=== PATIENT | female | born 1940 | race Caucasian/White ===

== ENCOUNTER 2016-12-03 19:10 | Observation (INO) ==
[2016-12-03 19:41] LABS: Basophils % 0.2 %; Eosinophils # 0.1 K/mcL (0.0-0.6); Eosinophils % 0.8 %; Hematocrit 40.9 % (35.3-44.9); Hemoglobin 14.3 g/dL (11.5-15.4); Immature Granulocytes % 0.5 % (0-4); Immature Platelets 4.9 % (1.1-6.1); Lymphocytes # 1.5 K/mcL (0.6-4.6); Mean Corpuscular Volume 88.7 fL (83.0-100.0); Mean Platelet Volume 10.5 fL (9.4-12.4); Monocytes # 1.2 K/mcL (0.0-1.3); Monocytes % 12.8 %; Neutrophils # 6.5 K/mcL (1.6-8.9); Platelet Count 238 K/mcL (140-400); Red Blood Count 4.61 M/mcL (3.82-4.97); Red Cell Distribution Width 12.3 % (11.5-14.5); Segmented Neutrophils % 69.7 %
[2016-12-03 19:45] LABS: Prothrombin Time 11.2 Seconds (9.4-12.1)
[2016-12-03 19:47] LABS: Activated Partial Thrombo Time 21.1 Seconds (26.0-36.0)
[2016-12-03 19:52] LABS: Calcium 10.4 mg/dL (8.6-10.8)
--- NOTE | 2016-12-03 21:36 | Emergency Department Note ---
Disposition Clinical Impression: Falls frequently, Clinical decompensation, Hyponatremia, Hypokalemia Disposition: Admitted As Inpatient Condition: Good Time of Disposition: 00:55 General Adult HPI - General Chief complaint: ED Fall Stated complaint: dizzy, fell Time Seen by Provider: 12/03/16 19:24 Source: patient, EMS Limitations: altered mental status Nursing Notes Reviewed: Yes Vital Signs Reviewed: Yes - History of Present Illness HPI Narrative: Demented female patient fell twice today. was able to help her down to the ground during the second time however the first time she did check her head. Family states she is acting appropriately. Patient is very confused. Pupils are equal and reactive. She is unable to tell stories. She does say she has pain in her left hip whenever it is palpated. Patient's denies any syncope for the patient but states that she does feel very weak and goes down to the ground. Pain Scale: 0 - Related Data Home Medications Medication Instructions Recorded Confirmed Amlodipine Besylate [Amlodipine 10 mg PO DAILY 12/03/16 12/03/16 Besylate] Ascorbate Calcium [Vitamin C] 500 mg PO DAILY 12/03/16 12/03/16 Calcium Citrate/Vitamin D3 1 tab PO DAILY 12/03/16 12/03/16 [Calcium Citrate - Vit D Caplet] Cholecalciferol (Vitamin D3) 2,000 unit PO DAILY 12/03/16 12/03/16 [Vitamin D] Donepezil [Aricept] 10 mg PO DAILY 12/03/16 12/03/16 L. Acidophilus/Pectin, Fleming 1 cap PO DAILY 12/03/16 12/03/16 [Acidophilus Probiotic Capsule] Lisinopril/Hydrochlorothiazide 1 tab PO DAILY 12/03/16 12/03/16 [Zestoretic 20-25 mg Tablet] Ranitidine HCl [Heartburn Relief] 150 mg PO BID 12/03/16 12/03/16 Vitamin E (Dl,Tocopheryl Acet) 400 unit PO DAILY 12/03/16 12/03/16 [Vitamin E] Allergies Allergy/AdvReac Type Severity Reaction Status Date / Time No Known Allergies Allergy Unverified 05/23/15 09:25 Limitations: ROS unobtainable due to patients medical condition Past Medical History - Past Medical History Medical history: Reports: cancer, dementia, GERD, hyperlipidemia, hypertension Psychiatric history: Reports: anxiety, depression - Social History Smoking Status: Never smoker Smokeless Tobacco Status: No Alcohol use: Reports: none Drug use: Reports: none Physical Exam - General Limitations: altered mental status General appearance: in no apparent distress - Head Head exam: atraumatic, normocephalic, normal inspection - Eye Eye exam: Present: normal appearance, PERRL, EOMI. Absent: scleral icterus - ENT ENT exam: normal exam, normal oropharynx, mucous membranes moist - Neck Neck exam: Present: normal inspection, full ROM, trachea midline - Chest Chest inspection: Present: normal inspection, symmetric chest wall rise - Respiratory Respiratory exam: Present: normal lung sounds bilaterally. Absent: respiratory distress - Cardiovascular Cardiovascular exam: Present: regular rate, normal rhythm, normal heart sounds - Abdominal Exam Abdominal exam: Present: soft, Non-Tender, normal bowel sounds. Absent: tenderness, distention, guarding, rebound, rigidity, organomegaly - Extremities Exam Extremities exam: Present: normal inspection, full ROM, tenderness (Palpation of left hip area. Also has pain to palpation of lower thoracic upper lumbar area.), normal capillary refill, other (Strong pulses in all 4 extremities.). Absent: pedal edema - Back Exam Back exam: Present: normal inspection, other (No step-offs noted.). Absent: CVA tenderness (R), CVA tenderness (L) - Neurological Exam Neurological exam: Present: alert. Absent: oriented X3 (Demented. Family states this is her normal mental state.) - Psychiatric Psychiatric exam: Present: agitated - Skin Skin exam: Present: warm, dry, intact, normal color. Absent: rash, cyanosis, diaphoresis, erythema Course Course Narrative: Female patient presenting to the emergency department after sustaining 2 falls today. Family states she just went down to her knees because she got too weak. Patient does have a history of dementia. She stayed 2 weeks in the long term for respite care and the family states she has been ever since she left. They state that she did strike her head whenever she fell in the bathroom. She was brought in by EMS on a backboard. She is demented. She gets very aggravated whenever you talk to her or try to take off her socks. I do not appreciate any signs of trauma to her body. There is no gross deformity of her extremities. She has full movement of all 4 extremities and good pulses. She does complain of left hip pain. If you ask her where it hurts she says "here" no matter where you are touching. There no signs of ecchymosis. She does grimace on palpation of her lower thoracic upper lumbar area. We will see him patient's head and C-spine as well as her thoracic and lumbar spine. We will also get a basic lab workup on patient and check her urine for infection. Patient's family states that she is acting appropriately for herself. Her pupils are equal and reactive and she does not appear to be in any distress. - Reevaluation(s) Reevaluation #1: Patient's imaging was normal. She has been mentating to her normal state while she is here. Patient's decompensating in her condition. Family is unable to care for her at home at this time. She does have recent frequent falls. She is unable to care for herself. She does have hypokalemia. As well as hyponatremia. We have ordered mag levels. We will admit the patient. - Consultations Consultation #1: Dr Jaramillo accepted Pt in stable condition. Time: 22:47 Vital Signs Temperature 97.8 F 12/03/16 19:13 Pulse Rate 120 12/03/16 19:13 Respiratory Rate 16 12/03/16 19:13 Blood Pressure 96/47 12/03/16 19:13 O2 Sat by Pulse Oximetry 94 12/03/16 19:13 Temperature 98.6 F 12/04/16 00:02 Pulse Rate 84 12/04/16 00:02 Respiratory Rate 15 12/04/16 00:02 Blood Pressure 116/70 12/04/16 00:02 O2 Sat by Pulse Oximetry 97 12/04/16 00:02 Oxygen Delivery Oxygen Delivery Room Air Medical Decision Making - Medical Records Medical records reviewed: Yes I reviewed the patient's medical records. - Lab Data Lab results reviewed: Yes I reviewed the patient's lab results. Result diagrams: 12/03/16 19:30 12/03/16 19:30 Lab Results 12/03/16 12/03/16 12/03/16 Range/Units 19:16 19:30 19:30 WBC 9.3 (4.3-11.1) K/mcL RBC 4.61 (3.82-4.97) M/mcL Hgb 14.3 (11.5-15.4) g/dL Hct 40.9 (35.3-44.9) % MCV 88.7 (83.0-100.0) fL MCH 31.0 (28.0-33.3) pg MCHC 35.0 (31.6-35.5) g/dL RDW 12.3 (11.5-14.5) % Plt Count 238 (140-400) K/mcL MPV 10.5 (9.4-12.4) fL Immature Gran % 0.5 (0-4) % Seg Neutrophils % 69.7 % Lymphocytes % 16.0 % Monocytes % 12.8 % Eosinophils % 0.8 % Basophils % 0.2 % Neutrophils # 6.5 (1.6-8.9) K/mcL Lymphocytes # 1.5 (0.6-4.6) K/mcL Monocytes # 1.2 (0.0-1.3) K/mcL Eosinophils # 0.1 (0.0-0.6) K/mcL Basophils # 0.0 (0.0-0.2) K/mcL Immature Plt Fraction 4.9 (1.1-6.1) % PT 11.2 (9.4-12.1) Seconds INR 1.0 APTT 21.1 L (26.0-36.0) Seconds Sodium (136-145) mEq/L Potassium (3.5-4.5) mEq/L Chloride (98-109) mEq/L Carbon Dioxide (19-29) mEq/L BUN (7-20) mg/dL Creatinine (0.57-1.11) mg/dL Est GFR ( Amer) (> 60) Est GFR (Non-Af Amer) (> 60) BUN/Creatinine Ratio (6-26) Glucose (70-99) mg/dL POC Glucose 108 H (58-89) Calculated Osmolality (280-300) Calcium (8.6-10.8) mg/dL Magnesium (1.6-2.6) mg/dL Urine Color (Yellow) Urine Clarity (Clear) Urine pH (5.0-8.0) pH Units Ur Specific Rainier (1.010-1.025) Urine Protein (Neg-Trace) mg/dL Urine Glucose (UA) (Normal) mg/dL Urine Ketones (Negative) mg/dL Urine Blood (Negative) Urine Nitrite (Negative) Urine Bilirubin (Negative) Urine Urobilinogen (Normal) mg/dL Ur Leukocyte Esterase (Negative) Ur Culture Indicated? (NO) 12/03/16 12/03/16 Range/Units 19:30 21:50 WBC (4.3-11.1) K/mcL RBC (3.82-4.97) M/mcL Hgb (11.5-15.4) g/dL Hct (35.3-44.9) % MCV (83.0-100.0) fL MCH (28.0-33.3) pg MCHC (31.6-35.5) g/dL RDW (11.5-14.5) % Plt Count (140-400) K/mcL MPV (9.4-12.4) fL Immature Gran % (0-4) % Seg Neutrophils % % Lymphocytes % % Monocytes % % Eosinophils % % Basophils % % Neutrophils # (1.6-8.9) K/mcL Lymphocytes # (0.6-4.6) K/mcL Monocytes # (0.0-1.3) K/mcL Eosinophils # (0.0-0.6) K/mcL Basophils # (0.0-0.2) K/mcL Immature Plt Fraction (1.1-6.1) % PT (9.4-12.1) Seconds INR APTT (26.0-36.0) Seconds Sodium 131 L (136-145) mEq/L Potassium 3.0 L (3.5-4.5) mEq/L Chloride 95 L (98-109) mEq/L Carbon Dioxide 24 (19-29) mEq/L BUN 35 H (7-20) mg/dL Creatinine 1.57 H (0.57-1.11) mg/dL Est GFR ( Amer) 39 L (> 60) Est GFR (Non-Af Amer) 32 L (> 60) BUN/Creatinine Ratio 22 (6-26) Glucose 113 H (70-99) mg/dL POC Glucose (58-89) Calculated Osmolality 281 (280-300) Calcium 10.4 (8.6-10.8) mg/dL Magnesium 1.9 (1.6-2.6) mg/dL Urine Color Yellow (Yellow) Urine Clarity Clear (Clear) Urine pH 5.5 (5.0-8.0) pH Units Ur Specific Rainier 1.014 (1.010-1.025) Urine Protein Negative (Neg-Trace) mg/dL Urine Glucose (UA) Normal (Normal) mg/dL Urine Ketones Trace H (Negative) mg/dL Urine Blood Negative (Negative) Urine Nitrite Negative (Negative) Urine Bilirubin Negative (Negative) Urine Urobilinogen Normal (Normal) mg/dL Ur Leukocyte Esterase Negative (Negative) Ur Culture Indicated? NO (NO) - Radiology Data Radiology results reviewed: Yes I reviewed the patient's radiology results. Cervical Spine CT 12/03/16 19:24 IMPRESSION: No acute abnormality of the cervical spine. D/ / Arpita Reyes Cha, MD / Arpita Reyes Cha, MD Interpreting Provider: Arpita Reyes Cha, MD Head CT 12/03/16 19:24 IMPRESSION: No acute intracranial abnormality. D/ / Arpita Reyes Cha, MD / Arpita Reyes Cha, MD Interpreting Provider: Arpita Reyes Cha, MD Hip X-Ray 12/03/16 19:24 IMPRESSION: No acute bony abnormality. D/ / Arpita Reyes Cha, MD / Arpita Reyes Cha, MD Interpreting Provider: Arpita Reyes Cha, MD Lumbar Spine CT 12/03/16 19:24 IMPRESSION: No acute finding in the thoracic or lumbar spine. D/ / Octavio Scott MD / Octavio Scott MD Interpreting Provider: Octavio Scott MD Thoracic Spine CT 12/03/16 19:24 IMPRESSION: No acute finding in the thoracic or lumbar spine. D/ / Octavio Scott MD / Octavio Scott MD Interpreting Provider: Octavio Scott MD Attestation Statement - Attestation Attestation: I, Augusto Coombs MD, personally evaluated this patient and discussed their management with the resident physician. I reviewed the resident's note and agree with the documented findings, medical decision making, and plan of care. 76-year-old female with history of dementia presents to the emergency department after a fall at home. reports that she just recently came home from a 2 week stay at the long term. He reports that since coming home she has been more weak and seems more confused. No fever. She has fallen twice today. He states that she just gets weak and falls. No loss of consciousness. Patient unable to provide any history or review of systems. Family reports this is her normal mental status. On examination patient is a small thin elderly female in no acute distress. She is alert but confused and disoriented. There is no cyanosis or diaphoresis. No obvious head trauma. Neck is supple with full range of motion. There is some tenderness to palpation over the mid to lower thoracic spine area. There is also some tenderness over the left hip with pain with movement. No deformity. Neurovascular function intact distally. Chest is nontender to palpation. Breath sounds are decreased but equal bilaterally. Heart regular. Abdomen soft and nontender with normal bowel sounds. Labs reviewed. CT of the head shows no acute intracranial abnormality. CT of the cervical thoracic and lumbar spine shows no acute abnormality. X-ray of the left hip was negative. The hospitalist, Dr. Jaramillo, was consulted and accepted admission of the patient.
[2016-12-03 22:08] LABS: Bilirubin,Urine Negative (Negative); Blood,Urine Negative (Negative); Clarity,Urine Clear (Clear); Color,Urine Yellow (Yellow); Glucose,Urine (UA) Normal (Normal); Ketones,Urine Trace mg/dL (Negative); Leukocyte Esterase,Urine Negative (Negative); Nitrite,Urine Negative (Negative); PH,Urine 5.5 pH Units (5.0-8.0); Protein,Urine Negative (Neg-Trace); Specific Gravity,Urine 1.014 (1.010-1.025); Urobilinogen,Urine Normal (Normal)
[2016-12-03] MEDS ORDERED: Potassium Effervescent 25 MEQ TABLET.EFF PO ONE (22:30)
[2016-12-03] MEDS ORDERED: 0.9 % Sodium Chloride 1,000 ML IVC SCH (22:45)
[2016-12-03 22:50] LABS: Magnesium 1.9 mg/dL (1.6-2.6)
[2016-12-04] MEDS ORDERED: Naloxone 0.4 MG/ML INJ IVP PRN (00:53)
--- NOTE | 2016-12-04 00:59 | Internal Med History&Physical ---
Date of Encounter: 12/04/16 Time of Encounter: 00:57 Assessment and Plan (1) Physical deconditioning Current visit: Yes Status: Acute this may be contributing to her falls vs gait instability, will get PT/OT to weigh in, will observe fall precautions (2) Hypokalemia Current visit: Yes Status: Acute may be from poor intake, will replace and follow BMP (3) Renal insufficiency Current visit: Yes Status: Acute a slight bump in her baseline creatinine from 1.35 in 07/2016 to 1.57, we will hydrate, avoid nephrotoxins, renally dose all medications and follow BMP (4) Falls frequently Current visit: Yes Status: Acute may be related to physical deconditioning vs gait instability, will get PT/OT to weigh in (5) HTN (hypertension) Current visit: Yes Status: Chronic will continue her home medications with BP monitoring Qualifiers: Hypertension type: essential hypertension Qualified Code(s): I10 - Essential (primary) hypertension (6) GERD (gastroesophageal reflux disease) Current visit: Yes Status: Chronic will continue pepcid Qualifiers: Esophagitis presence: without esophagitis Qualified Code(s): K21.9 - Gastro -esophageal reflux disease without esophagitis (7) Dementia Current visit: Yes Status: Chronic will continue aricept, will order delirium bundle Qualifiers: Dementia type: Alzheimer's disease Alzheimer's disease onset: late-onset Dementia behavioral disturbance: without behavioral disturbance Qualified Code (s): G30.1 - Alzheimer's disease with late onset; F02.80 - Dementia in other diseases classified elsewhere without behavioral disturbance Internal Medicine - H&P: HPI Chief complaint: generalized weakness and falls Admitted From: Emergency Dept Plans for Post Hospital Care: Home History of present illness: Ms. Henao is a 76 year old female with a hx of dementia who was brought in for repeated falls. Patient is unable to give her own history due to advanced dementia so history was obtained from family and ER notes. It was reported that she has been experiencing frequent falls that has been worsening lately to the point of falling twice on the day of presentation. Family reports that she has recently being in respite care for a 2 week period. No reported fever, chills, cough or any concerning constitutional symptoms. Past Med Surg Social Fam HX - Past Medical History Medical history: cancer, dementia, GERD, hyperlipidemia, hypertension Psychiatric history: anxiety, depression - Past Surgical History Surgical History: breast surgery, hysterectomy, pacemaker - Social History Smoking Status: Never smoker Smokeless Tobacco Status: No Alcohol use: none Drug use: none Current living situation: Home, With Family - Additional Family History Additional family history: unable to obtain due to advanced dementia Internal Medicine - H&P: Meds Amlodipine Besylate [Amlodipine Besylate] 10 mg PO DAILY 12/03/16 [History] Ascorbate Calcium [Vitamin C] 500 mg PO DAILY 12/03/16 [History] Calcium Citrate/Vitamin D3 [Calcium Citrate - Vit D Caplet] 1 tab PO DAILY 12/03 [History] Cholecalciferol (Vitamin D3) [Vitamin D] 2,000 unit PO DAILY 12/03/16 [History] Donepezil [Aricept] 10 mg PO DAILY 12/03/16 [History] L. Acidophilus/Pectin, Banks [Acidophilus Probiotic Capsule] 1 cap PO DAILY [History] Lisinopril/Hydrochlorothiazide [Zestoretic 20-25 mg Tablet] 1 tab PO DAILY 12/03 [History] Ranitidine HCl [Heartburn Relief] 150 mg PO BID 12/03/16 [History] Vitamin E (Dl,Tocopheryl Acet) [Vitamin E] 400 unit PO DAILY 12/03/16 [History] 3 Allergy/AdvReac Type Severity Reaction Status Date / Time No Known Allergies Allergy Unverified 05/23/15 09:25 ROS unobtainable: other (advanced dementia) All Systems PM: A 10-system review of systems was performed and is negative for pertinent findings except as documented above in the HPI. - Constitutional Vitals: Temp Pulse Resp BP Pulse Ox 98.6 F 84 15 116/70 97 12/04/16 00:02 12/04/16 00:02 12/04/16 00:02 12/04/16 00:02 12/04/16 00:02 GENERAL: Frail elderly female, lying in bed with no sign of distress, HEENT: NC/AT, EOMI, PERRLA, anicteric sclera, normal conjunctiva, supple, clear nares, moist mucous membranes, RESP: Lungs are clear to auscultation bilaterally, good AE bilaterally, No crackles or wheeze CARDIO: Normal hearts sounds; S1 and 2, RRR with no murmurs, no JVD, no ankle edema GI: Soft, full, no tenderness, no organomegaly felt, normal bowel sounds heard MUSCULOSKELETAL: grossly normal movements bilaterally, no deformities noted, no calf tenderness NEUROLOGIC: CN 2-12 intact grossly. No gross motor/sensory deficit appreciated, PSYCHIATRY: AAO x 0 SKIN: flushed face Internal Med - H&P Results - Labs CBC & Chem 7: 12/04/16 06:21 12/03/16 19:30 - Impressions Cervical Spine CT 12/03/16 19:24 IMPRESSION: No acute abnormality of the cervical spine. D/ / Arpita Reyes Cha, MD / Arpita Reyes Cha, MD Interpreting Provider: Arpita Reyes Cha, MD Head CT 12/03/16 19:24 IMPRESSION: No acute intracranial abnormality. D/ / Arpita Reyes Cha, MD / Arpita Reyes Cha, MD Interpreting Provider: Arpita Reyes Cha, MD Hip X-Ray 12/03/16 19:24 IMPRESSION: No acute bony abnormality. D/ / Arpita Reyes Cha, MD / Arpita Reyes Cha, MD Interpreting Provider: Arpita Reyes Cha, MD Lumbar Spine CT 12/03/16 19:24 IMPRESSION: No acute finding in the thoracic or lumbar spine. D/ / Octavio Scott MD / Octavio Scott MD Interpreting Provider: Octavio Scott MD Thoracic Spine CT 12/03/16 19:24 IMPRESSION: No acute finding in the thoracic or lumbar spine. D/ / Octavio Scott MD / Octavio Scott MD - Diagnostic Studies CT scan - head Status: image reviewed by me Other Images Status: image reviewed by me (neck CT)
[2016-12-04 06:30] LABS: Basophils % 0.2 %; Eosinophils # 0.1 K/mcL (0.0-0.6); Eosinophils % 1.2 %; Hematocrit 38.6 % (35.3-44.9); Hemoglobin 13.2 g/dL (11.5-15.4); Immature Granulocytes % 0.6 % (0-4); Immature Platelets 3.7 % (1.1-6.1); Lymphocytes # 1.8 K/mcL (0.6-4.6); Lymphocytes % 21.8 %; Mean Corpuscular HGB Conc 34.2 g/dL (31.6-35.5); Mean Corpuscular Hemoglobin 30.8 pg (28.0-33.3); Mean Platelet Volume 10.2 fL (9.4-12.4); Monocytes # 1.1 K/mcL (0.0-1.3); Monocytes % 13.8 %; Neutrophils # 5.1 K/mcL (1.6-8.9); Platelet Count 205 K/mcL (140-400); Red Blood Count 4.29 M/mcL (3.82-4.97); Red Cell Distribution Width 12.4 % (11.5-14.5); Segmented Neutrophils % 62.4 %
[2016-12-04] MEDS ORDERED: Haloperidol Lactate 5 MG/ML VIAL IVP PRN (06:41)
[2016-12-04] MEDS ORDERED: Potassium Chloride Elixir 20 MEQ/15 ML UDC PO ONE (06:41)
[2016-12-04 07:30] LABS: Calcium 9.6 mg/dL (8.6-10.8); Magnesium 1.8 mg/dL (1.6-2.6); Phosphorous 2.6 mg/dL (2.3-4.7); Potassium 3.3 mEq/L (3.5-4.5)
[2016-12-04] MEDS: Thiamine (B-1) 100 MG TABLET PO SCH (09:00)
[2016-12-04] MEDS: Vitamin B Complex/Vit C/Vit E 1 EACH TABLET PO SCH (09:00)
[2016-12-04] MEDS: Famotidine 20 MG TABLET PO SCH ×2 (09:00→22:25)
[2016-12-04] MEDS: Lactobacillus 1 EACH CAP.SPRINK PO SCH (09:00)
[2016-12-04] MEDS: Cholecalciferol (D-3) 1,000 UNIT TABLET PO SCH (09:00)
[2016-12-04] MEDS: Ascorbic Acid 500 MG TABLET PO SCH (09:00)
[2016-12-04] MEDS ORDERED: amLODIPine 5 MG TABLET PO SCH (09:00)
[2016-12-04] MEDS: *HR* Heparin 5,000 UNIT/ML VIAL SQ SCH ×2 (09:00→19:26)
[2016-12-04] MEDS: Folic Acid 1 MG TABLET PO SCH (09:00)
[2016-12-04] MEDS: VITAMIN E 400 UNIT PO SCH (09:00)
--- NOTE | 2016-12-04 10:11 | Internal Med Progress Note ---
Date of Encounter: 12/04/16 Time of Encounter: 10:08 - Assessment and plan (1) Renal insufficiency Current Visit: Yes Status: Acute Assessment and plan: Likely secondary to dehydration Continue IV fluids (2) Falls frequently Current Visit: Yes Status: Acute Assessment and plan: Frequent falls Check orthostatics, follow precautions Physical therapy and occupational therapy evaluation (3) Physical deconditioning Current Visit: Yes Status: Acute (4) Hyponatremia Current Visit: Yes Status: Acute (5) Hypokalemia Current Visit: Yes Status: Acute Assessment and plan: Takes lisinopril hydrochlorothiazide Replete as needed (6) GERD (gastroesophageal reflux disease) Current Visit: Yes Status: Chronic Assessment and plan: Continue famotidine Qualifiers: Esophagitis presence: without esophagitis Qualified Code(s): K21.9 - Gastro -esophageal reflux disease without esophagitis (7) Dementia Current Visit: Yes Status: Chronic Assessment and plan: Continue donepezil, Haldol as needed Qualifiers: Dementia type: Alzheimer's disease Alzheimer's disease onset: late-onset Dementia behavioral disturbance: without behavioral disturbance Qualified Code (s): G30.1 - Alzheimer's disease with late onset; F02.80 - Dementia in other diseases classified elsewhere without behavioral disturbance - Subjective Interval history: The patient has severe dementia, unable to complete review of systems, seems to be in no distress. She can only recall her name but not her last name , she is disoriented in time and place. - Constitutional Vitals: Temp Pulse Resp BP Pulse Ox 98.5 F 76 16 117/68 98 12/04/16 06:31 12/04/16 06:31 12/04/16 06:31 12/04/16 06:31 12/04/16 06:31 General appearance: Present: A&O X 1 - Head Head exam: Present: atraumatic, normocephalic - Eye Eye exam: Present: PERRL, conjuntiva pink, sclera anicteric Pupils: Present: PERRL - Neck Neck exam general surgery: Present: supple, trachea midline. Absent: lymphadenopathy - Respiratory Respiratory exam: Present: CTAB. Absent: accessory muscle use, rales, rhonchi, wheezes - Cardiovascular Cardiovascular exam: Present: RRR, +S1, +S2. Absent: diastolic murmur, gallop, rubs, systolic murmur - GI/Abdominal GI/Abdominal exam: Present: normal bowel sounds, soft, no peritoneal signs. Absent: distended, tenderness - Extremities Exam Extremities exam: Present: warm, radial pulses palpable and symmetrical. Absent : calf tenderness, cyanotic, pedal edema - Neurological Exam Neurological exam: Present: CN II-XII intact, no focal deficits. Absent: oriented X3, pronater drift, facial droop, speech deficit - Skin Skin exam: Present: dry, intact Internal Medicine: Result - Labs CBC & Chem 7: 12/04/16 06:21 12/04/16 07:08 Labs: Short CBC 12/04/16 Range/Units 06:21 WBC 8.1 (4.3-11.1) K/mcL Hgb 13.2 (11.5-15.4) g/dL Hct 38.6 (35.3-44.9) % Plt Count 205 (140-400) K/mcL Neutrophils # 5.1 (1.6-8.9) K/mcL BMP 12/04/16 07:08 Sodium 133 L Potassium 3.3 L Chloride 99 Carbon Dioxide 26 BUN 32 H Creatinine 1.22 H Glucose 96 Calcium 9.6 - ABG Interpretation ABG results: PT/INR, D-dimer PT 11.2 Seconds (9.4-12.1) 12/03/16 19:30 Consult Discharge Plan - Plan Referrals: Mehdi Marmolejo MD [Primary Care Provider] -
[2016-12-04] MEDS ORDERED: 0.9 % Sodium Chloride 500 ML IVC ONE (17:19)
[2016-12-05 05:47] LABS: BUN/Creatinine Ratio 25 (6-26); Blood Urea Nitrogen 27 mg/dL (7-20); Calcium 9.5 mg/dL (8.6-10.8); Carbon Dioxide 24 mEq/L (19-29); Chloride 102 mEq/L (98-109); Glucose 91 mg/dL (70-99); Osmolality,Calculated 289 (280-300); Potassium 3.2 mEq/L (3.5-4.5); Sodium 137 mEq/L (136-145); eGFR For African Americans > 60 (> 60); eGFR For Non-African Americans 50 (> 60)
[2016-12-05] MEDS: *HR* Heparin 5,000 UNIT/ML VIAL SQ SCH ×2 (06:04→17:27)
--- NOTE | 2016-12-05 09:06 | Internal Med Progress Note ---
Date of Encounter: 12/05/16 Time of Encounter: 08:59 - Assessment and plan (1) Orthostatic hypotension Current Visit: Yes Status: Acute Assessment and plan: Severe orthostatic hypotension, possibly secondary to dehydration Blood pressure laying down was 123/51, sitting up was 103/67 and standing up was 68/40 Continue IV fluids, hold lisinopril, amlodipine and hydrochlorothiazide Consider Midodrin if not improving (2) Renal insufficiency Current Visit: Yes Status: Acute Assessment and plan: Likely secondary to dehydration Continue IV fluids (3) Falls frequently Current Visit: Yes Status: Acute Assessment and plan: Frequent falls likely due to orthostatic hypotension Physical therapy and occupational therapy evaluation (4) Physical deconditioning Current Visit: Yes Status: Acute (5) Hyponatremia Current Visit: Yes Status: Acute Assessment and plan: likely 2ry to poor oral intake and HCTZ (6) Hypokalemia Current Visit: Yes Status: Acute Assessment and plan: exacerbatied by hydrochlorothiazide Replete as needed (7) GERD (gastroesophageal reflux disease) Current Visit: Yes Status: Chronic Assessment and plan: Continue famotidine Qualifiers: Esophagitis presence: without esophagitis Qualified Code(s): K21.9 - Gastro -esophageal reflux disease without esophagitis (8) Dementia Current Visit: Yes Status: Chronic Assessment and plan: Continue donepezil, Haldol as needed Qualifiers: Dementia type: Alzheimer's disease Alzheimer's disease onset: late-onset Dementia behavioral disturbance: without behavioral disturbance Qualified Code (s): G30.1 - Alzheimer's disease with late onset; F02.80 - Dementia in other diseases classified elsewhere without behavioral disturbance - Subjective Interval history: N change in mental status. The patient has severe dementia, unable to complete review of systems, seems to be in no distress. She can only recall her name but not her last name , she is disoriented in time and place. - Constitutional Vitals: Temp Pulse Resp BP Pulse Ox 98.1 F 72 16 93/57 93 12/05/16 06:38 12/05/16 06:38 12/05/16 06:38 12/05/16 06:38 12/05/16 06:38 General appearance: Present: A&O X 1 - Head Head exam: Present: atraumatic, normocephalic - Eye Eye exam: Present: PERRL, conjuntiva pink, sclera anicteric Pupils: Present: PERRL - Neck Neck exam general surgery: Present: supple, trachea midline. Absent: lymphadenopathy - Respiratory Respiratory exam: Present: CTAB. Absent: accessory muscle use, rales, rhonchi, wheezes - Cardiovascular Cardiovascular exam: Present: RRR, +S1, +S2. Absent: diastolic murmur, gallop, rubs, systolic murmur - GI/Abdominal GI/Abdominal exam: Present: normal bowel sounds, soft, no peritoneal signs. Absent: distended, tenderness - Extremities Exam Extremities exam: Present: warm, radial pulses palpable and symmetrical. Absent : calf tenderness, cyanotic, pedal edema - Neurological Exam Neurological exam: Present: CN II-XII intact, no focal deficits. Absent: oriented X3, pronater drift, facial droop, speech deficit - Skin Skin exam: Present: dry, intact Internal Medicine: Result - Labs CBC & Chem 7: 12/04/16 06:21 12/05/16 05:26 Labs: BMP 12/05/16 05:26 Sodium 137 Potassium 3.2 L Chloride 102 Carbon Dioxide 24 BUN 27 H Creatinine 1.06 Glucose 91 Calcium 9.5 - ABG Interpretation ABG results: PT/INR, D-dimer PT 11.2 Seconds (9.4-12.1) 12/03/16 19:30 Consult Discharge Plan - Plan Referrals: Mehdi Marmolejo MD [Primary Care Provider] -
[2016-12-05] MEDS: VITAMIN E 400 UNIT PO SCH (09:55)
[2016-12-05] MEDS: Lactobacillus 1 EACH CAP.SPRINK PO SCH (10:10)
[2016-12-05] MEDS: Thiamine (B-1) 100 MG TABLET PO SCH (10:10)
[2016-12-05] MEDS: Vitamin B Complex/Vit C/Vit E 1 EACH TABLET PO SCH (10:10)
[2016-12-05] MEDS: Folic Acid 1 MG TABLET PO SCH (10:10)
[2016-12-05] MEDS: Ascorbic Acid 500 MG TABLET PO SCH (10:10)
[2016-12-05] MEDS: Famotidine 20 MG TABLET PO SCH (10:10)
[2016-12-05] MEDS: Cholecalciferol (D-3) 1,000 UNIT TABLET PO SCH (10:10)
--- NOTE | 2016-12-05 10:26 | Electrocardiograph Report ---
[address] [address] Test Date: 2016-12-03 Pat Name: Marcella Henao Department: 102 Room: [facility] Gender: F Plumber Cub: Marga : 1940 Requested By: Radha Figueroa Order Number: [id number] Reading MD: Rogelio Marquez MD Measurements Intervals [place] Rate: 64 P: MS: 0 QRS: -77 QRSD: 145 T: 89 QT: 490 QTc: 500 Interpretive Statements ELECTRONIC VENTRICULAR PACEMAKER Electronically Signed On 12-05-2016 10:24:07 EDT by Rogelio Marquez MD
[2016-12-06] MEDS ORDERED: *HR* LORazepam 2 MG/ML VIAL IVP ONE (05:04)
[2016-12-06] MEDS: *HR* Heparin 5,000 UNIT/ML VIAL SQ SCH ×2 (05:46→17:48)
[2016-12-06 06:05] LABS: BUN/Creatinine Ratio 24 (6-26); Blood Urea Nitrogen 23 mg/dL (7-20); Calcium 9.4 mg/dL (8.6-10.8); Carbon Dioxide 19 mEq/L (19-29); Chloride 112 mEq/L (98-109); Glucose 94 mg/dL (70-99); Osmolality,Calculated 295 (280-300); Sodium 141 mEq/L (136-145); eGFR For African Americans > 60 (> 60); eGFR For Non-African Americans 57 (> 60)
[2016-12-06 06:06] LABS: Potassium 4.7 mEq/L (3.5-4.5)
--- NOTE | 2016-12-06 09:19 | Discharge Summary ---
<Skyler Mcneal R - Last Filed: 12/06/16 10:06> Date of Encounter: 12/06/16 Time of Encounter: 09:16 - Discharge Diagnosis (1) Orthostatic hypotension Priority: Primary Status: Acute (2) Renal insufficiency Priority: Secondary Status: Acute (3) Falls frequently Priority: Secondary Status: Acute (4) Physical deconditioning Priority: Secondary Status: Acute (5) Hyponatremia Priority: Secondary Status: Acute (6) Hypokalemia Priority: Secondary Status: Acute (7) GERD (gastroesophageal reflux disease) Priority: Secondary Status: Chronic Qualifiers: Esophagitis presence: without esophagitis Qualified Code(s): K21.9 - Gastro -esophageal reflux disease without esophagitis (8) Dementia Priority: Secondary Status: Chronic Qualifiers: Dementia type: Alzheimer's disease Alzheimer's disease onset: late-onset Dementia behavioral disturbance: without behavioral disturbance Qualified Code (s): G30.1 - Alzheimer's disease with late onset; F02.80 - Dementia in other diseases classified elsewhere without behavioral disturbance - Discharge Medications Prescriptions: Folic Acid 1 mg PO DAILY #30 tab Lisinopril [Zestril] 10 mg PO DAILY #30 tablet Thiamine (B-1) [Vitamin B-1] 100 mg PO DAILY #30 tab Vitamin B Complex/Vit C/Vit E [Stresstab] 1 each PO DAILY #30 tab Home Medications: Ascorbate Calcium [Vitamin C] 500 mg PO DAILY 12/03/16 [History] Calcium Citrate/Vitamin D3 [Calcium Citrate - Vit D Caplet] 1 tab PO DAILY 12/03 [History] Cholecalciferol (Vitamin D3) [Vitamin D3] 2,000 unit PO DAILY 12/03/16 [History] Donepezil [Aricept] 10 mg PO DAILY 12/03/16 [History] L. Acidophilus/Pectin, [place] [Acidophilus Probiotic Capsule] 1 cap PO DAILY [History] Ranitidine HCl [Heartburn Relief] 150 mg PO BID 12/03/16 [History] Vitamin E (Dl,Tocopheryl Acet) [Vitamin E] 400 unit PO DAILY 12/03/16 [History] Folic Acid 1 mg PO DAILY #30 tab 12/06/16 [Rx] Lisinopril [Zestril] 10 mg PO DAILY #30 tablet 12/06/16 [Rx] Thiamine (B-1) [Vitamin B-1] 100 mg PO DAILY #30 tab 12/06/16 [Rx] Vitamin B Complex/Vit C/Vit E [Stresstab] 1 each PO DAILY #30 tab 12/06/16 [Rx] Allergies/Adverse Reactions: 3 Allergy/AdvReac Type Severity Reaction Status Date / Time No Known Allergies Allergy Unverified 05/23/15 09:25 Date of admission: 12/03/16 23:18 Primary care physician: Mehdi Marmolejo MD Consults: 12/04/16 00:54 Consult to Occupational Therapy [CONS] Routine Comment: Evaluate, develop and implement POC Reason for Consult: pls assist with mgt, thanks 12/04/16 00:55 Consult to Physical Therapy [CONS] Routine Comment: Evaluate, develop and implement POC Reason for Consult: pls assist with mgt, thanks Consult to Photo Graphics Librarian [CONS] Routine Reason for SW Consult: d/c planning Discharging clinician: Skyler Mcneal Anticipated date of discharge: 12/06/16 - Patient Status Disposition: Transfer SNF Condition: Good Overall status at discharge: patient is back to baseline - Discharge Instructions Follow Up With: Mehdi Marmolejo MD [Primary Care Provider] - 12/13/16 10:15 am Additional Instructions: Do not take amlodipine or hydrochlorothiazide May continue to take Lisinopril Make sure to eat and drink enough Continue to work with physical therapy Follow-up with your primary care provider Return to the hospital if your symptoms return or worsen - Diet and Activity Activity: as per physical therapy Diet: advance to your usual diet Interval History: Patient seen and examined. Awakens briefly, but frequently falls asleep during my exam. No changes in mental status, A&O x1. History of dementia. Unable to obtain review of systems, she appears to be resting comfortably, in no acute distress. Hospital course: Ms. Henao is a 76 year old female with a history of advanced dementia presented for frequent falls, with two reported falls on the date of admission. The history was mostly obtained from family members, but they report frequent falls that has been worsening lately. On exam she is found to have profound orthostatic hypotension: laying down was 123/51, sitting up was 103/67 and standing up was 68/40. She was very dehydrated as well. Lisinopril, amlodipine, and hydrochlorothiazide were discontinued. The combination of orthostasis with dehydration is likely leading to her frequent falls. Social Work is currently working to find placement for her. - Time Spent with Patient Total time spent providing and/or coordinating discharge services: Greater than 30 minutes - Constitutional Vitals: Temp Pulse Resp BP Pulse Ox 98.0 F 71 16 148/79 99 12/06/16 06:32 12/06/16 06:32 12/06/16 06:32 12/06/16 06:32 12/06/16 06:32 General appearance: Present: A&O X 1, no acute distress - Head Head exam: Present: atraumatic, normocephalic - Eye Eye exam: Present: conjuntiva pink, sclera anicteric - ENT ENT exam: Present: mucous membranes moist - Respiratory Respiratory exam: Present: CTAB. Absent: rales, rhonchi, wheezes - Cardiovascular Cardiovascular exam: Present: RRR, +S1, +S2. Absent: diastolic murmur, systolic murmur - GI/Abdominal GI/Abdominal exam: Present: normal bowel sounds, soft. Absent: distended, rigid , tenderness - Extremities Exam Extremities exam: Present: warm, radial pulses palpable and symmetrical. Absent : pedal edema, tenderness - Neurological Exam Neurological exam: Present: alert, no focal deficits. Absent: oriented X3, facial droop, speech deficit <Regis Gan H - Last Filed: 12/06/16 14:21> Date of Encounter: 12/06/16 - Discharge Diagnosis (1) Orthostatic hypotension Status: Acute (2) Renal insufficiency Status: Acute (3) Falls frequently Status: Acute (4) Physical deconditioning Status: Acute (5) Hyponatremia Status: Acute (6) Hypokalemia Status: Acute (7) GERD (gastroesophageal reflux disease) Status: Chronic Qualifiers: Esophagitis presence: without esophagitis Qualified Code(s): K21.9 - Gastro -esophageal reflux disease without esophagitis (8) Dementia Status: Chronic Qualifiers: Dementia type: Alzheimer's disease Alzheimer's disease onset: late-onset Dementia behavioral disturbance: without behavioral disturbance Qualified Code (s): G30.1 - Alzheimer's disease with late onset; F02.80 - Dementia in other diseases classified elsewhere without behavioral disturbance Date of admission: 12/03/16 23:18 Primary care physician: Mehdi Marmolejo MD Consults: 12/04/16 00:54 Consult to Occupational Therapy [CONS] Routine Comment: Evaluate, develop and implement POC Reason for Consult: pls assist with mgt, thanks 12/04/16 00:55 Consult to Physical Therapy [CONS] Routine Comment: Evaluate, develop and implement POC Reason for Consult: pls assist with mgt, thanks Consult to Photo Graphics Librarian [CONS] Routine Reason for SW Consult: d/c planning Hospital course: Ms. Henao is a 76 year old female - Time Spent with Patient Total time spent providing and/or coordinating discharge services: - Constitutional Vitals: Temp Pulse Resp BP Pulse Ox 97.3 F L 108 16 107/71 97 12/06/16 10:47 12/06/16 10:47 12/06/16 10:47 12/06/16 10:47 12/06/16 10:47 - Attending Attestation Recurrent falls secondary to severe orthostatic hypotension possibly due to dehydration Discontinue hydrochlorothiazide and amlodipine, may continue lisinopril Fall precautions I examined this patient and my medical decision-making was reviewed with the Resident Physician. I agree with the documented findings, disposition and treatment plan as described except to the extent set forth below.
[2016-12-06] MEDS: Lactobacillus 1 EACH CAP.SPRINK PO SCH (09:52)
[2016-12-06] MEDS: Famotidine 20 MG TABLET PO SCH (09:52)
[2016-12-06] MEDS: Vitamin B Complex/Vit C/Vit E 1 EACH TABLET PO SCH (09:52)
[2016-12-06] MEDS: VITAMIN E 400 UNIT PO SCH (09:52)
[2016-12-06] MEDS: Folic Acid 1 MG TABLET PO SCH (09:52)
[2016-12-06] MEDS: Thiamine (B-1) 100 MG TABLET PO SCH (09:53)
[2016-12-06] MEDS: Ascorbic Acid 500 MG TABLET PO SCH (09:53)
[2016-12-06] MEDS: Cholecalciferol (D-3) 1,000 UNIT TABLET PO SCH (09:53)
--- NOTE | 2016-12-06 15:54 | Physician Discharge Referral ---
ExtendedCare Referral Info Transfer To: ECF Provider in Charge after Transfer: PCP, Other ([facility]) Institutional Level of Care: Skilled - Diagnosis (1) Orthostatic hypotension Priority: Primary Status: Acute (2) Renal insufficiency Priority: Secondary Status: Acute (3) Falls frequently Priority: Secondary Status: Acute (4) Physical deconditioning Priority: Secondary Status: Acute (5) Hyponatremia Priority: Secondary Status: Acute (6) Hypokalemia Priority: Secondary Status: Acute (7) GERD (gastroesophageal reflux disease) Priority: Secondary Status: Chronic (8) Dementia Priority: Secondary Status: Chronic Expected Duration of Placement: Long-term Prognosis: Fair Aware of Diagnosis: Family Aware of Prognosis: Family - Transfer Medications Prescriptions: Folic Acid 1 mg PO DAILY #30 tab Lisinopril [Zestril] 10 mg PO DAILY #30 tablet Thiamine (B-1) [Vitamin B-1] 100 mg PO DAILY #30 tab Vitamin B Complex/Vit C/Vit E [Stresstab] 1 each PO DAILY #30 tab Home Medications: Ascorbate Calcium [Vitamin C] 500 mg PO DAILY 12/03/16 [History] Calcium Citrate/Vitamin D3 [Calcium Citrate - Vit D Caplet] 1 tab PO DAILY 12/03 [History] Cholecalciferol (Vitamin D3) [Vitamin D3] 2,000 unit PO DAILY 12/03/16 [History] Donepezil [Aricept] 10 mg PO DAILY 12/03/16 [History] L. Acidophilus/Pectin, [place] [Acidophilus Probiotic Capsule] 1 cap PO DAILY [History] Ranitidine HCl [Heartburn Relief] 150 mg PO BID 12/03/16 [History] Vitamin E (Dl,Tocopheryl Acet) [Vitamin E] 400 unit PO DAILY 12/03/16 [History] Folic Acid 1 mg PO DAILY #30 tab 12/06/16 [Rx] Lisinopril [Zestril] 10 mg PO DAILY #30 tablet 12/06/16 [Rx] Thiamine (B-1) [Vitamin B-1] 100 mg PO DAILY #30 tab 12/06/16 [Rx] Vitamin B Complex/Vit C/Vit E [Stresstab] 1 each PO DAILY #30 tab 12/06/16 [Rx] Allergies/Adverse Reactions: 3 Allergy/AdvReac Type Severity Reaction Status Date / Time No Known Allergies Allergy Unverified 05/23/15 09:25 - Respiratory Orders Smoking Cessation: Smoking cessation has been advised. For more information, call the [place] Tobacco Quit Line at 8-506-SRUF-NOW. - Advance Directives Code Status: DNR-Arrest - Mobility Orders Other (Minimal - mostly bedrest) - Rehabiliation Orders Rehab Potential: Fair Rehab Orders: Evaluation for Physical Therapy, Evaluation for Occupational Therapy - Diet Orders Regular CERTIFICATION: I certify that the transfer of the above named patient to an Extended Care Facility is necessary for the continuing treatment of the diagnosis listed. The above information is true and accurate reflection of patient's current condition. Confidential - Redisclosure prohibited without a patient's written consent.
[2016-12-07] MEDS: *HR* Heparin 5,000 UNIT/ML VIAL SQ SCH ×2 (05:42→17:49)
[2016-12-07] MEDS: Folic Acid 1 MG TABLET PO SCH (08:44)
[2016-12-07] MEDS: Thiamine (B-1) 100 MG TABLET PO SCH (08:44)
[2016-12-07] MEDS: Lactobacillus 1 EACH CAP.SPRINK PO SCH (08:44)
[2016-12-07] MEDS: Cholecalciferol (D-3) 1,000 UNIT TABLET PO SCH (08:44)
[2016-12-07] MEDS: Ascorbic Acid 500 MG TABLET PO SCH (08:44)
[2016-12-07] MEDS: Vitamin B Complex/Vit C/Vit E 1 EACH TABLET PO SCH (08:44)
[2016-12-07] MEDS: Famotidine 20 MG TABLET PO SCH (08:44)
[2016-12-07] MEDS: VITAMIN E 400 UNIT PO SCH (08:45)
--- NOTE | 2016-12-07 16:35 | Internal Med Progress Note ---
Date of Encounter: 12/07/16 Time of Encounter: 10:50 - Assessment and plan (1) Orthostatic hypotension Current Visit: Yes Status: Acute Assessment and plan: Improved. Blood pressure is much better at this time. Awaiting placement to skilled rehabilitation (2) Dementia Current Visit: Yes Status: Chronic Assessment and plan: Chronic. Continue Aricept. Haldol for symptoms of agitation Qualifiers: Dementia type: Alzheimer's disease Alzheimer's disease onset: late-onset Dementia behavioral disturbance: without behavioral disturbance Qualified Code (s): G30.1 - Alzheimer's disease with late onset; F02.80 - Dementia in other diseases classified elsewhere without behavioral disturbance (3) Falls frequently Current Visit: Yes Status: Acute Assessment and plan: Continue supportive care and physical therapy (4) GERD (gastroesophageal reflux disease) Current Visit: Yes Status: Chronic Assessment and plan: Continue Pepcid Qualifiers: Esophagitis presence: without esophagitis Qualified Code(s): K21.9 - Gastro -esophageal reflux disease without esophagitis (5) Hypokalemia Current Visit: Yes Status: Resolved Assessment and plan: Potassium 4.7 yesterday. (6) Hyponatremia Current Visit: Yes Status: Resolved (7) Physical deconditioning Current Visit: Yes Status: Acute Assessment and plan: Placement to skilled rehabilitation when bed available (8) Renal insufficiency Current Visit: Yes Status: Resolved Assessment and plan: This has resolved - Subjective Interval history: Patient is lying in bed. Appears comfortable. Denies any new complaints at this time. - Constitutional Vitals: Temp Pulse Resp BP Pulse Ox 97.4 F L 71 16 130/72 97 12/07/16 15:40 12/07/16 15:40 12/07/16 15:40 12/07/16 15:40 12/07/16 15:40 General appearance: Present: A&O X 1, no acute distress, answers questions appropriately - Neck Neck exam general surgery: Present: supple, trachea midline. Absent: lymphadenopathy - Respiratory Respiratory exam: Present: CTAB. Absent: accessory muscle use, rales, rhonchi, wheezes - Cardiovascular Cardiovascular exam: Present: RRR, +S1, +S2. Absent: diastolic murmur, gallop, rubs, systolic murmur - Extremities Exam Extremities exam: Present: warm, radial pulses palpable and symmetrical. Absent : calf tenderness, cyanotic, pedal edema Internal Medicine: Result - Labs CBC & Chem 7: 12/04/16 06:21 12/06/16 05:33 - ABG Interpretation ABG results: PT/INR, D-dimer PT 11.2 Seconds (9.4-12.1) 12/03/16 19:30 Consult Discharge Plan - Plan Additional Instructions: Do not take amlodipine or hydrochlorothiazide May continue to take Lisinopril Make sure to eat and drink enough Continue to work with physical therapy Follow-up with your primary care provider Return to the hospital if your symptoms return or worsen Referrals: Mehdi Marmolejo MD [Primary Care Provider] - Prescriptions: Folic Acid 1 mg PO DAILY #30 tab Lisinopril [Zestril] 10 mg PO DAILY #30 tablet Thiamine (B-1) [Vitamin B-1] 100 mg PO DAILY #30 tab Vitamin B Complex/Vit C/Vit E [Stresstab] 1 each PO DAILY #30 tab
[2016-12-07 18:45] VITALS: BP 134/72
== END 2016-12-07 19:24 ==
LOC: 3NENU 19:10 → EMEROO 19:10 → SUATTDRO 23:18 → 3NENU 23:32 → 3ANU 12-06 05:34
PROVIDERS: ADMIT Pediatrics; ATTEND Internal Medicine